=== PATIENT | male | born 1995 | race African-American/Black ===

== ENCOUNTER 2019-04-05 18:34 | Emergency (ER) | payer OTHER ==
[2019-04-05] MEDS ORDERED: AMPICILLIN/SULBACTAM 3 GM in SODIUM CHLORIDE 0.9% MINIBAG 100 ML IV STA (19:03)
[2019-04-05] MEDS ORDERED: BUFFERED LIDOCAINE 10 ML SYRINGE SUBQ STA (19:03)
--- NOTE | 2019-04-05 19:06 | ED Physician Documentation ---
PD HPI HEENT - Stated complaint Stated Complaint: RT FACIAL SWELLING - Chief complaint Chief Complaint: Heent - History obtained from History obtained from: Patient (23-year-old gentleman with chronic acne had a pimple on the right cheek last night that he popped now with facial swelling in that area. No fevers. He started Bactrim this morning but is worse.) Review of Systems Ten Systems: 10 systems reviewed and negative Constitutional: denies: Fever, Chills Nose: denies: Rhinorrhea / runny nose, Congestion Throat: denies: Sore throat PD PAST MEDICAL HISTORY - Present Medications Home Medications: Ambulatory Orders Medication Instructions Recorded Confirmed Amox/Clav 875/125 [Augmentin] 1 each PO Q12H #20 tablet 04/05/19 - Allergies Allergies/Adverse Reactions: Allergies Allergy/AdvReac Type Severity Reaction Status Date / Time No Known Drug Allergies Allergy Verified 04/05/19 18:41 PD ED PE NORMAL - Vitals Vital signs reviewed: Yes - General General: Alert and oriented X 3, No acute distress - HEENT HEENT: Other (His sequela of chronic cystic acne, there is facial cellulitis from below the right eye down to the cheek and over the nose. His eye is not swollen shut.) - Neck Neck: Supple, no meningeal sign, No bony TTP - Cardiac Cardiac: RRR, No murmur - Respiratory Respiratory: No respiratory distress, Clear bilaterally - Abdomen Abdomen: Non tender - Derm Derm: No rash - Neuro Neuro: Alert and oriented X 3, Normal speech Results - Vitals Vitals: Vital Signs - 24 hr 04/05/19 04/05/19 18:41 20:30 Temperature 36.7 C Heart Rate 96 82 Respiratory 16 18 Rate Blood Pressure 123/77 125/74 O2 Saturation 99 100 Oxygen O2 Source Room air - Labs Labs: Laboratory Tests 04/05/19 04/05/19 19:09 19:09 WBC 12.7 H RBC 5.25 Hgb 15.6 Hct 47.1 MCV 89.7 MCH 29.7 MCHC 33.1 RDW 12.4 Plt Count 252 MPV 10.7 Neut # (Auto) 8.4 H Lymph # (Auto) 2.9 Coryell # (Auto) 1.3 H Eos # (Auto) 0.1 Baso # (Auto) 0.0 Absolute Nucleated RBC 0.00 Nucleated RBC % 0.0 Sodium 140 Potassium 3.5 Chloride 101 Carbon Dioxide 30 Anion Gap 9.0 BUN 14 Creatinine 1.2 Estimated GFR (MDRD) 90 Glucose 102 H Calcium 10.0 PD MEDICAL DECISION MAKING - ED course ED course: 23-year-old gentleman with facial cellulitis related to acne. He was given a dose of IV Unasyn. He is already taken a couple of doses of Bactrim as an outpatient. After Unasyn the skin of the face was prepped and infiltrated locally with lidocaine and then needle aspirated a small amount of pus was retrieved and sent for culture. He tolerated this well. Departure - Departure Disposition: Home, Self Care Clinical Impression: Facial cellulitis Condition: Good Record reviewed to determine appropriate education?: Yes Instructions: ED Cellulitis Facial Prescriptions: Amox/Clav 875/125 [Augmentin] 1 each PO Q12H #20 tablet Comments: Continue the antibiotic they gave you today in addition to the new one to be started in the morning the dose tonight. Return Monday morning around 7 AM for recheck and culture review. Sooner if worse. Discharge Date/Time: 04/05/19 20:33
[2019-04-05 19:16] LABS: MEAN CORPUSCULAR HGB CONC 33.1 g/dL (32.0-36.0); RED CELL DISTRIBUTION WIDTH 12.4 % (12.0-15.0)
[2019-04-05 19:21] LABS: BASOPHILS % (AUTO) 0.3 %; EOSINOPHILS # (AUTO) 0.1 10^3/uL (0.0-0.7); EOSINOPHILS % (AUTO) 0.7 %; HGB - HEMOGLOBIN 15.6 g/dL (14.0-18.0); LYMPHOCYTES # (AUTO) 2.9 10^3/uL (1.5-3.5); LYMPHOCYTES % (AUTO) 22.7 %; MEAN CORPUSCULAR HEMOGLOBIN 29.7 pg (27.0-31.0); MEAN CORPUSCULAR VOLUME 89.7 fL (80.0-94.0); MEAN PLATELET VOLUME 10.7 fL (7.4-11.4); MONOCYTES # (AUTO) 1.3 10^3/uL (0.0-1.0); MONOCYTES % (AUTO) 10.3 %; NEUTROPHILS # (AUTO) 8.4 10^3/uL (1.5-6.6); NEUTROPHILS % (AUTO) 65.6 %; PLT - PLATELET COUNT 252 10^3/uL (130-450); RED BLOOD COUNT 5.25 10^6/uL (4.70-6.10); WHITE BLOOD COUNT 12.7 x10^3/uL (4.8-10.8)
[2019-04-05 19:26] LABS: CREATININE 1.2 mg/dL (0.6-1.2)
[2019-04-05 20:31] VITALS: BP 125/74
== END 2019-04-05 20:33 | disposition home or self-care (01) ==
LOC: ED 18:34
DX: L03.211 Cellulitis of face (principal); L70.0 Acne vulgaris
CPT/HCPCS: 36415; 80048; 85025; 87070; 87205; 96365; 99284

== ENCOUNTER 2019-04-07 06:59 | Emergency (ER) | payer OTHER ==
--- NOTE | 2019-04-07 07:34 | ED Physician Documentation ---
PD HPI WOUND RECHECK - Stated complaint Stated Complaint: R CHEEK INFECTION/FU - Chief complaint Chief Complaint: Wound - Histroy obtained from History obtained from: Patient - History of Present Illness Location: Face Timing - onset: How many days ago (2) Associated symptoms: Swelling. No: Drainage, Pain Similar symptoms before: Diagnosis (facial abcess) Recently seen: Emergency Dept - Additional information Additional information: 23-year-old male had an abscess on his right cheek drained 2 days ago he has been on some Augmentin and he reports decreased swelling and absence of pain. He is here for a wound recheck as requested. His culture has no growth. He did receive antibiotic prior to the needle aspiration. Review of Systems Constitutional: denies: Fever Eyes: reports: Other (tearing). denies: Decreased vision Nose: denies: Congestion Respiratory: denies: Cough GI: denies: Vomiting PD PAST MEDICAL HISTORY - Past Medical History Past Medical History: No - Past Surgical History Past Surgical History: No - Present Medications Home Medications: Ambulatory Orders Medication Instructions Recorded Confirmed Amox/Clav 875/125 [Augmentin] 1 each PO Q12H #20 tablet 04/05/19 - Allergies Allergies/Adverse Reactions: Allergies Allergy/AdvReac Type Severity Reaction Status Date / Time No Known Drug Allergies Allergy Verified 04/05/19 18:41 - Social History Does the pt smoke?: No Smoking Status: Never smoker Does the pt drink ETOH?: No Does the pt have substance abuse?: No - Immunizations Immunizations are current?: Yes - POLST Patient has POLST: No PD ED PE NORMAL - Vitals Vital signs reviewed: Yes (normal ) - General General: Alert and oriented X 3, No acute distress, Well developed/nourished - HEENT HEENT: PERRL, EOMI, Other (There is erythema with mild swelling over the right cheeck. There is no fluctuance or tenderness. The extent of swelling and redness extends from the edge of the lower lid to the upper cheeck and about 2cm wide. ) - Neck Neck: Supple, no meningeal sign, No bony TTP - Respiratory Respiratory: No respiratory distress - Derm Derm: Normal color, Warm and dry - Neuro Neuro: Alert and oriented X 3, lens mold setter 2-12 intact, No motor deficit, No sensory deficit, Normal speech Eye Opening: Spontaneous Motor: Obeys Commands Verbal: Oriented GCS Score: 15 - Psych Psych: Normal mood, Normal affect Results - Vitals Vitals: Vital Signs - 24 hr 04/07/19 07:00 Temperature 36.7 C Heart Rate 89 Respiratory 16 Rate Blood Pressure 116/73 O2 Saturation 100 Oxygen O2 Source Room air PD MEDICAL DECISION MAKING - ED course Complexity details: considered differential, d/w patient ED course: 23-year-old male with a resolving facial abscess appears to be improving. Departure - Departure Disposition: 01 Home, Self Care Clinical Impression: Facial cellulitis Instructions: ED Cellulitis Facial Follow-Up: VEGA LAGUNAS III, MD [Primary Care Provider] -
[2019-04-07 08:14] VITALS: BP 127/87
== END 2019-04-07 08:13 | disposition home or self-care (01) ==
LOC: ED 06:59
DX: L03.211 Cellulitis of face (principal)
CPT/HCPCS: 99281; 99282

== ENCOUNTER 2019-10-14 10:58 | Emergency (ER) | payer OTHER ==
[2019-10-14 11:12] VITALS: BP 127/72
[2019-10-14] MEDS ORDERED: LIDOCAINE 1%-EPI 1:100000 20 ML MDV SUBQ STA (11:37)
--- NOTE | 2019-10-14 11:40 | ED Physician Documentation ---
PD HPI WOUND RECHECK - Stated complaint Stated Complaint: LT FACE SWELL - Chief complaint Chief Complaint: Wound - Histroy obtained from History obtained from: Patient (He is always had a small lump inferior to the left ear and over the last 4 days or so it has become painful and swollen. History of cystic acne.) Review of Systems Constitutional: reports: Reviewed and negative Nose: reports: Reviewed and negative Throat: reports: Reviewed and negative PD PAST MEDICAL HISTORY - Past Surgical History Past Surgical History: No - Present Medications Home Medications: Ambulatory Orders Medication Instructions Recorded Confirmed Amox/Clav 875/125 [Augmentin] 1 each PO Q12H #20 tablet 04/05/19 Cephalexin [Keflex] 500 mg PO Q6H #28 capsule 10/14/19 - Allergies Allergies/Adverse Reactions: Allergies Allergy/AdvReac Type Severity Reaction Status Date / Time No Known Drug Allergies Allergy Verified 04/05/19 18:41 - Social History Does the pt smoke?: No Smoking Status: Never smoker Does the pt drink ETOH?: No Does the pt have substance abuse?: No - Immunizations Immunizations are current?: Yes - POLST Patient has POLST: No PD ED PE NORMAL - Vitals Vital signs reviewed: Yes - General General: Alert and oriented X 3, No acute distress - HEENT HEENT: Other (There is a cystic lesion that is swollen and tender inferior to the left ear) - Neuro Neuro: Alert and oriented X 3, Normal speech Results - Vitals Vitals: Vital Signs - 24 hr 10/14/19 11:10 Temperature 36.9 C Heart Rate 98 Respiratory 18 Rate Blood Pressure 127/72 O2 Saturation 100 Oxygen O2 Source Room air Procedures - Abscess I&D (location) L face Preparation: Alcohol, Lidocaine 1% Incision: Incised with scalpel, Purulent drainage, Loculations broken, Culture obtained Other: Pt tolerated well, Dressing applied, Antibiotic prescribed Departure - Departure Disposition: 01 Home, Self Care Clinical Impression: Infected sebaceous cyst Condition: Good Record reviewed to determine appropriate education?: Yes Instructions: ED Abscess IandD Prescriptions: Cephalexin [Keflex] 500 mg PO Q6H #28 capsule Comments: We are performing a wound culture, the results should be done in 48-72 hours. If antibiotic change is necessary we will call you. Return if worse in the meantime, especially if you develop increased pain, fevers, cannot keep down the medication. Otherwise follow-up with your physician in approximately 2-3 days.
== END 2019-10-14 12:04 | disposition home or self-care (01) ==
LOC: ED 10:58
DX: L72.3 Sebaceous cyst (principal); L08.9 Local infection of the skin and subcutaneous tissue, unspecified
CPT/HCPCS: 10060; 87070; 87077; 87181; 87205

== ENCOUNTER 2021-08-19 08:00 | Outpatient (CLI) | payer OTHER ==
[2021-08-19 22:29] LABS: CHLAMYDIA TRACHOMATIS DNA NEGATIVE (NEGATIVE); NEISSERIA GONORRHOEAE DNA NEGATIVE (NEGATIVE)
[2021-08-20 03:09] LABS: HCV AB <0.1 s/co ratio (0.0-0.9)
[2021-08-20 06:10] LABS: HIV SCREEN 4TH GENERATION Non Reactive (Non Reactive)
[2021-08-20 07:11] LABS: HSV 1 IGG TYPE SPEC 3.82 index (0.00-0.90); HSV 2 IGG TYPE SPEC <0.91 index (0.00-0.90); RPR Non Reactive (Non Reactive)
[2021-08-20 19:07] LABS: HSV IGM I/II COMBINATION <0.91 Ratio (0.00-0.90)
== END 2021-08-20 10:45 | disposition home or self-care (01) ==
LOC: LAB.N 08:00
PROVIDERS: ATTEND Family Medicine
DX: Z11.3 Encounter for screening for infections with a predominantly sexual mode of transmission (principal)
CPT/HCPCS: 86592; 86593; 86695; 86696; 86780; 86803; 87389; 87491; 87522; 87591; 87661

== ENCOUNTER 2021-11-05 08:00 | Outpatient (CLI) | payer OTHER ==
[2021-11-06 00:01] LABS: CHLAMYDIA TRACHOMATIS DNA NEGATIVE (NEGATIVE); NEISSERIA GONORRHOEAE DNA NEGATIVE (NEGATIVE)
== END 2021-11-05 23:59 | disposition home or self-care (01) ==
LOC: LAB.N 08:00
PROVIDERS: ATTEND Family Medicine
DX: Z11.3 Encounter for screening for infections with a predominantly sexual mode of transmission (principal)
CPT/HCPCS: 87491; 87591; 87661

== ENCOUNTER 2022-01-10 19:45 | Emergency (ER) | payer OTHER ==
[2022-01-10 20:07] VITALS: BP 126/77
[2022-01-10] MEDS ORDERED: predniSONE 20 MG TABLET PO STA (21:25)
--- NOTE | 2022-01-10 21:26 | ED Physician Documentation ---
History of Present Illness - Stated complaint Stated Complaint: RASH - Chief complaint Chief Complaint: Allergic Rx - History obtained from History obtained from: Patient - History of Present Illness Timing: Today Pain level max: 0 Pain level now: 0 - Additonal information Additional information: 26-year-old male, active [employer] with a rash to the posterior aspect of the right upper arm. This is at the site that he received a yellow fever vaccination 5 days ago. The rash is described as itchy. Took Benadryl without relief. No fevers. No chills. No new soaps, detergents, lotions, medications. Review of Systems Constitutional: denies: Fever GI: denies: Vomiting Musculoskeletal: denies: Neck pain, Back pain Neurologic: denies: Headache PD PAST MEDICAL HISTORY - Past Medical History Past Medical History: No - Past Surgical History Past Surgical History: No - Present Medications Home Medications: Ambulatory Orders Medication Instructions Recorded Confirmed predniSONE [Deltasone] 40 mg PO DAILY #10 tablet 01/10/22 - Allergies Allergies/Adverse Reactions: Allergies Allergy/AdvReac Type Severity Reaction Status Date / Time No Known Drug Allergies Allergy Verified 01/10/22 20:07 - Social History Does the pt smoke?: No Smoking Status: Never smoker Does the pt drink ETOH?: No Does the pt have substance abuse?: No - Immunizations Immunizations are current?: Yes - POLST Patient has POLST: No PD ED PE NORMAL - Vitals Vital signs reviewed: Yes - General General: Alert and oriented X 3, No acute distress - HEENT HEENT: Moist mucous membranes - Neck Neck: Supple, no meningeal sign - Cardiac Cardiac: RRR - Respiratory Respiratory: No respiratory distress - Derm Derm: Warm and dry, Other (2 x 2 centimeter area of erythema, maculopapular exanthem to the posterior aspect of the right upper arm. No induration or fluctuance. Neurovascular intact.) - Neuro Neuro: Alert and oriented X 3 Results - Vitals Vitals: Vital Signs - 24 hr 01/10/22 20:01 Temperature 36.8 C Heart Rate 86 Respiratory 14 Rate Blood Pressure 126/77 O2 Saturation 100 Oxygen O2 Source Room air PD MEDICAL DECISION MAKING - ED course Complexity details: considered differential, d/w patient ED course: Patient with a small rash to the posterior aspect of the right upper arm. Possible vaccine reaction. We will place on a small amount of steroids and have him follow-up with his doctor for further care. No evidence of cellulitis or infection. Patient counseled regarding signs and symptoms for which I believe and urgent re-evaluation would be necessary. Patient with good understanding of and agreement to plan and is comfortable going home at this time This document was made in part using voice recognition software. While efforts are made to proofread this document, sound alike and grammatical errors may occur. Departure - Departure Disposition: 01 Home, Self Care Clinical Impression: Rash and nonspecific skin eruption Condition: Good Instructions: ED Dermatitis Non Specific Rash Follow-Up: BRADY CERDA MD [Primary Care Provider] - Within 1 week Prescriptions: predniSONE [Deltasone] 40 mg PO DAILY #10 tablet Comments: Your prescriptions were sent to [facility] in [place]. This is likely a localized reaction to the yellow fever vaccine. Please follow-up with your doctor for further care. Please return if you worsen. Discharge Date/Time: 01/10/22 21:29
== END 2022-01-10 21:29 | disposition home or self-care (01) ==
LOC: ED 19:45
DX: R21 Rash and other nonspecific skin eruption (principal)
CPT/HCPCS: 99282; J7512